=== PATIENT | male | born 1975 | race Caucasian/White ===

== ENCOUNTER 2017-01-31 17:52 | Inpatient (IN) | payer OTHER ==
[~2017-01-31] VITALS: Ht 182.9 cm; Wt 185.4 kg
[~2017-01-31 17:52] MED LIST: Vancomycin Dose per Pharmacist XX ONE
[2017-01-31 17:59] VITALS: BP 163/105; PULSE 120; RESP 20; O2SAT 96
--- NOTE | 2017-01-31 18:22 | ED.REPORT ---
HPI-Rash / Abscess Date of Service Jan 31, 2017 ED Provider: Dr. Castaneda Pt is a 41 y/o male w/ a hx of morbid obesity presenting to the ED c/o bilateral lower redness, swelling, and pain onset 2 weeks ago. The patient normally uses wraps over his lower extremities but lost them at a truck stop weeks ago. He was seen 2 years ago for lower extremity cellulitis in [place] and was told he had borderline diabetes. He takes no medications and has no history of cardiac disease. Pt denies fever, chills, nausea, vomiting. Nursing Notes Stated Complaint: POSSIBLE LEFT LEG CELLULITIS Chief Complaint: Skin Rash/Abscess Nursing Notes Reviewed: Yes Allergies: Coded Allergies: No Known Allergies (Unverified , 01/31/17) No Active Prescriptions or Reported Meds General Time Seen by MD: 18:22 Chief Complaint Rash Hx Obtained From: Patient Arrived By: Walk-in Onset Occurred: More than a week ago... (2 weeks) Symptom Duration: Since onset Location: : Lower extremity Quality: Painful Severity: Current: Mild Severity: Maximum: Mild Recent Healthcare: Previous diagnosis Similar Sx Previous: Yes Past Medical History Past Medical History Morbid obesity Hx lower extremity cellulitis Borderline diabetes Hernia Past Surgical History None reported Smoking History Unknown if Ever Smoker Ambulatory Status Independent Review of Systems Constitutional: Denies: Chills, Fever Respiratory: Denies: Non-productive cough, Shortness of breath Cardiovascular: Denies: Chest pain GI: Denies: Abdominal pain, Nausea, Vomiting Musculoskeletal: Reports: Extremity pain, Extremity swelling Skin: Reports Rash, Reports Swelling Complete sys rev & neg: except as marked. Physical Exam Initial Vital Signs Vital Signs (First) Date Time Temp Pulse Resp B/P Pulse Ox O2 Delivery O2 Flow Rate FiO2 01/31/17 17:59 37.4 120 20 163/105 96 Room Air Initial VS: Reviewed, Vital signs abnormal Head / Eyes: Atraumatic, Normocephalic, PERRL ENT: Mucous membranes moist, Conjunctiva normal, No scleral icterus Neck: Supple, Full range of motion Respiratory: Breath sounds normal, Clear to auscultation, No respiratory distress Extremities: Vascular intact, Neuro intact Neurologic: Alert, Oriented, Nonfocal Psychiatric: Mood/affect normal, Behavior normal, Normal thought content General/Constitutional: Awake, Alert, No acute distress, Cooperative, Not toxic appearing Appearance / Presentation: Positive: Obese, morbidly Significant malodor Skin: Atraumatic, Warm, Dry, Intact Cardiovascular: Regular rhythm, Heart sounds NL, No gallop, No murmurs, No rubs , Cap refill not delayed, Peripheral circulation NL Heart Rate / Rhythm: Positive: Tachycardia Lower Extremity / Pelvis / MS: Atraumatic, Full range of motion, Non-tender, No deformity, Neurologic intact, Vascular intact Bilateral lower extremity significant skin thickening, erythema, warmth Serous drainage from posterior left leg 2+ pitting edema Abdomen: Atraumatic, Soft, Non-tender, No guarding, No rebound, No distention, No palpable mass 6 cm non-reducible umbilical hernia Non-tender over hernia Ankle / Foot: No deformity, Neurologic intact, Vascular intact Very thickened calloused heals bilaterally Interpretation & Diagnostics Lab Results Interpretation Result Diagram: 02/02/17 0530 02/01/17 0815 Test 01/31/17 18:30 01/31/17 20:24 Hemoglobin A1c 8.0% (4.8-5.6) Magnesium Level 1.5mg/dL (1.6-2.6) Total Bilirubin 0.2mg/dL (0.0-1.2) Aspartate Amino Transf (AST/SGOT) 55U/L (0-50) Alanine Aminotransferase (ALT/SGPT) 71U/L (0-44) Alkaline Phosphatase 86U/L (25-150) Pro-B-Type Natriuretic Peptide 50.32pg/mL (0-86) Total Protein 7.2g/dL (6.4-8.4) Albumin 3.5g/dL (3.4-5.0) Urine Color Yellow (YELLOW) Urine Appearance Clear (CLEAR,HAZY) Urine pH 5.0 (5.0-8.0) Urine Specific [employer] 1.034 (1.003-1.035) Urine Protein 30mg/dL (NEG,TRACE) Urine Glucose (UA) 500mg/dL (NEGATIVE) Urine Ketones Negativemg/dL (NEGATIVE) Urine Occult Blood Negative (NEGATIVE) Urine Nitrite Negative (NEGATIVE) Urine Bilirubin Negative (NEGATIVE) Urine Urobilinogen Normalmg/dL (NORMAL) Urine Leukocyte Esterase Negative (NEGATIVE) Urine RBC 0-2/hpf (0-2) Urine WBC 0-5/hpf (0-5) Urine Epithelial Cells Few/hpf (NONE-MOD) Urine Crystals None seen (NONE SEEN) Urine Bacteria None/hpf (NONE-FEW) Urine Hyaline Casts None/lpf (NONE) Urine Granular Casts None seen (NONE SEEN) Urine Waxy Casts None seen (NONE SEEN) Urine Red Blood Cell Casts None seen (NONE SEEN) Urine White Blood Cell Casts None seen (NONE SEEN) Urine Mucus None seen (None Seen) Urine Trichomonas None seen (NONE SEEN) Urine Yeast None (NONE SEEN) Urinalysis Comment None Urine Culture Reflexed Not indicated ECG Interpretation ECG Interpretation: Sinus tachycardia rate 109 No previous available Time: 20:09 Interpreted by: ED physician Normal ECG Interpretation: No acute ischemic changes X-Ray Chest Interpretation Chest Xray Interpretation: IMPRESSION: 1. Questionable right basilar pulmonary nodule. Short interval followup recommended. 2. No acute cardiopulmonary findings. Dictated by: Kelly Yousif M.D. on 01/31/2017 at 19:24 Approved by: Kelly Yousif M.D. on 01/31/2017 at 19:25 View: Portable, 1 view Interpretation / Wet Read by: Interpret - Radiologist Re-Eval/Medical Decision Med Decision/Clinical Course 41-year-old morbidly obese male presents with bilateral lower extremity redness , tenderness, and warmth consistent with cellulitis. He has a history of chronic lower extremity edema and usually wears compression devices to help minimize this. He is currently homeless and is in the process of potentially moving to [place] in one or 2 weeks. His vitals are remarkable for tachycardia that persisted despite 2 L of fluid. There is no evidence of congestive heart failure on chest x-ray or with BNP. His sugars are elevated at 250 which is consistent with a diagnosis of type II diabetes. Patient was aware one year ago that he was a prediabetic, however he has not been given the diagnosis of diabetes to this point. I suspect she may also have sleep apnea which is contributing to his lower extremity edema. Given his cellulitis, tachycardia, and lactic acidosis as well as a new diagnosis of type II diabetes he will be admitted for infection treatment. He received vancomycin and Zosyn in the ER for his infection after cultures were obtained. He likely has a polymicrobial infection given his diabetes. Patient may also benefit from podiatry consultation/foot cares during hospitalization. Re-Evaluation/Progress #1: Time of Eval: 21:43 Re-Evaluation/Progress Note: Pt rechecked. Discussed labs and imaging. Remains tachy at 108 bpm. Informed pt of need for repeat lab lactic acid. Re-Evaluation/Progress #2: Time of Eval: 22:55 Re-Evaluation/Progress Note: Pt rechecked. Remains tachy. Discussed discharge vs admit. He is camping at the moment and since he is new to the area will have no access to follow-up. He also does not have a PCP. The patient agrees to admission. Consultation : Referral / Consult Name: Brooklyn De La Cruz DO Consulted With: Hospitalist Call Returned at: 23:13 Touch Up Edger: Will see patient, Agrees with eval, Agrees with plan, Accepts admit Counseled Regarding: Diagnosis, Lab results, Need for admission Discharge & Departure Impression: Primary Impression: Cellulitis of both lower extremities Additional Impressions: Lactic acidosis Hyperglycemia Disposition: ADMITTED TO HOSPITAL Discharge Condition All VS Reviewed: Yes Condition: Stable Scribe Attestation Portions of this note were transcribed by Mark Johnson. I, Dr. Castaneda personally performed the history, physical exam and medical decision-making; I reviewed and confirmed the accuracy of the information in the transcribed note. Signed by Logan Wiggins, 01/31/17 - 1845 Keo Castaneda DO Jan 31, 2017 18:22 MARK JOHNSON Jan 31, 2017 18:34 None seen (NONE SEEN) Urine Bacteria None/hpf (NONE-FEW) Urine Hyaline Casts None/lpf (NONE) Urine Granular Casts None seen (NONE SEEN) Urine Waxy Casts None seen (NONE SEEN) Urine Red Blood Cell Casts None seen (NONE SEEN) Urine White Blood Cell Casts None seen (NONE SEEN) Urine Mucus None seen (None Seen) Urine Trichomonas None seen (NONE SEEN) Urine Yeast None (NONE SEEN) Urinalysis Comment None Urine Culture Reflexed Not indicated Lactic Acid Level 2.8mmol/L (0.4-2.0) ECG Interpretation ECG Interpretation: Sinus tachycardia rate 109 No previous available Time: 20:09 Interpreted by: ED physician Normal ECG Interpretation: No acute ischemic changes X-Ray Chest Interpretation Chest Xray Interpretation: IMPRESSION: 1. Questionable right basilar pulmonary nodule. Short interval followup recommended. 2. No acute cardiopulmonary findings. Dictated by: Kelly Yousif M.D. on 01/31/2017 at 19:24 Approved by: Kelly Yousif M.D. on 01/31/2017 at 19:25 View: Portable, 1 view Interpretation / Wet Read by: Interpret - Radiologist Re-Eval/Medical Decision Med Decision/Clinical Course 41-year-old morbidly obese male presents with bilateral lower extremity redness , tenderness, and warmth consistent with cellulitis. He has a history of chronic lower extremity edema and usually wears compression devices to help minimize this. He is currently homeless and is in the process of potentially moving to [place] in one or 2 weeks. His vitals are remarkable for tachycardia that persisted despite 2 L of fluid. There is no evidence of congestive heart failure on chest x-ray or with BNP. His sugars are elevated at 250 which is consistent with a diagnosis of type II diabetes. Patient was aware one year ago that he was a prediabetic, however he has not been given the diagnosis of diabetes to this point. I suspect she may also have sleep apnea which is contributing to his lower extremity edema. Given his cellulitis, tachycardia, and lactic acidosis as well as a new diagnosis of type II diabetes he will be admitted for infection treatment. He received vancomycin and Zosyn in the ER for his infection after cultures were obtained. He likely has a polymicrobial infection given his diabetes. Patient may also benefit from some podiatry consultation/foot cares during hospitalization. Re-Evaluation/Progress #1: Time of Eval: 21:43 Re-Evaluation/Progress Note: Pt rechecked. Discussed labs and imaging. Remains tachy at 108 bpm. Informed pt of need for repeat lab lactic acid. Re-Evaluation/Progress #2: Time of Eval: 22:55 Re-Evaluation/Progress Note: Pt rechecked. Remains tachy. Discussed discharge vs admit. He is camping at the moment and since he is new to the area will have no access to follow-up. He also does not have a PCP. The patient agrees to admission. Consultation : Referral / Consult Name: Brooklyn De La Cruz DO Consulted With: Hospitalist Call Returned at: 23:13 Touch Up Edger: Will see patient, Agrees with eval, Agrees with plan, Accepts admit Counseled Regarding: Diagnosis, Lab results, Need for admission Discharge & Departure Impression: Primary Impression: Cellulitis of both lower extremities Additional Impressions: Lactic acidosis Hyperglycemia Disposition: ADMITTED TO HOSPITAL Discharge Condition All VS Reviewed: Yes Condition: Stable Scribe Attestation Portions of this note were transcribed by Mark Johnson. I, Dr. Castaneda personally performed the history, physical exam and medical decision-making; I reviewed and confirmed the accuracy of the information in the transcribed note. Signed by Logan Wiggins, 01/31/17 - 5 Keo Castaneda DO Jan 31, 2017 18:22 MARK JOHNSON Jan 31, 2017 18:34
[2017-01-31] MEDS ORDERED: 0.9% Sodium Chloride 1,000 ML IV ONE (18:28)
[2017-01-31] MEDS ORDERED: Piperacillin-Tazo 3.375 Gm Inj 3.375 GM in Dextrose 5% Minibag Plus 50 ML IV ONE (18:30)
[2017-01-31 18:47] VITALS: BP 131/59; PULSE 111
[2017-01-31 18:53] LABS: BASOPHILS % (AUTO) 0.3 % (0-3); EOSINOPHILS % (AUTO) 1.1 % (0-5); MONOCYTES % (AUTO) 8.5 % (4-12); Mean Corpuscular Hemoglobin 27.5 pg (27.0-35.0); Mean Corpuscular Volume 84.1 fL (81-100); NEUTROPHILS % (AUTO) 67.1 % (40-74); Platelet Count 246 bil/L (150-400)
[2017-01-31 19:11] LABS: Magnesium 1.5 mg/dL (1.6-2.6)
--- NOTE | 2017-01-31 19:27 | DRSVH ---
PROCEDURE: X-RAY CHEST, TWO VIEWS ([id number]) INDICATIONS: leg swelling TECHNIQUE: 2 views of the chest were acquired. COMPARISON: None. FINDINGS: Surgical changes and devices: None. Lungs and pleura: A questionable pulmonary nodule is projected over the lateral right lung base. This is only visualized on one of 2 views and may represent overlapping vascular shadows. No acute pulmon emmy radiopacities. No pleural effusion or pneumothorax. Mediastinum: Mediastinal contours are normal. Heart size is normal. Bones and chest wall: No suspicious bony abnormalities. Soft tissues appear unremarkable. IMPRESSION: 1. Questionable right basilar pulmonary nodule. Short interval followup recommended. 2. No acute cardiopulmonary findings. Dictated by: Kelly Yousif M.D. on 01/31/2017 at 19:24 Approved by: Kelly Yousif M.D. on 01/31/2017 at 19:25
[2017-01-31 20:20] VITALS: BP 115/75; PULSE 112; RESP 19; O2SAT 98
[2017-01-31 21:00] LABS: COLOR,URINE YELLOW (YELLOW)
[2017-01-31 21:01] LABS: APPEARANCE,URINE CLEAR (CLEAR,HAZY); OCCULT BLOOD,URINE NEGATIVE (NEGATIVE); UROBILINOGEN,URINE NORMAL (NORMAL)
[2017-01-31 21:57] VITALS: BP 140/75; PULSE 103; RESP 20; O2SAT 97
[2017-01-31] MEDS ORDERED: Vancomycin Inj 2,250 MG in 0.9% Sodium Chloride 500 ML IV ONE (23:20)
[2017-01-31 23:29] VITALS: BP 149/76; PULSE 102; RESP 17; O2SAT 93
[2017-01-31] MEDS ORDERED: Ondansetron 2 mg/mL 2 mL Inj IVPUSH PRN (23:35)
[2017-01-31] MEDS ORDERED: Alum-Mag Hydrox-Simeth 30 mL Suspension PO PRN (23:35)
[2017-02-01] VITALS (8 sets, daily range): BP systolic 127–167; BP diastolic 79–106; PULSE 89–104; RESP 18–22; O2SAT 97–100
--- NOTE | 2017-02-01 00:10 | PCM.HPMED ---
Subjective Date of Service Jan 31, 2017 Primary Provider: Admitting Physician: Brooklyn De La Cruz DO Primary Care Physician: Gilberto Attending Physician: Brooklyn De La Cruz DO Admit Status: From the Emergency Department, Full Admit Chief Complaint: Cellulitis, Hyperglycemia History of Present Illness: Patient is a 41 y/o Male new to this hospital with no known past medical history. Patient presented to ED with bilateral lower extremities erythema and swelling that has been chronic to him for the past two years, but has worsened over the last 2-3 weeks. He was previously treated at another facility for cellulitis and received IV Abx and d/c on home on an abx and "diabetic pill", but does not remember the name. He reports he normally wraps his legs in compression wraps, but lost them at a truck stop three weeks ago which has caused his leg swelling and erythema to worsen. Pt reports a lancing pain in the back of his left calf that comes on sporadically without cause and that immediately goes away. Nothing aggravates or alleviates this pain. Patient denies fever, chills, nausea, vomiting, and diarrhea. 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 Patient usually lives out of his truck, but has been staying at motels when he can. Patient does not have a PCP, and has not been worked up for any health maintenance in the past. In the ED, patient was given Zosyn 3.375mg IV, Vancomycin 2,250mg IV, and NS fluids. CXR performed showing no acute cardiopulonary findings. Patient admitted to medical service for cellulitis of lower extremities and hyperglycemia. Review of Systems: Complete review of systems obtained. Review of systems negative except otherwise noted above. Allergies Coded Allergies: No Known Allergies (Unverified , 01/31/17) Home Medications Patient denies being on any home medications. PMH Umbilical Hernia - 3 years Surgical History Denies any significant surgical history. Family History Father - CAD Mother - CVA Social History Hx Alcohol Use: No Hx Substance Use: No Hx Tobacco Use: No Smoking Status: Never Smoker Living Arrangement: Homeless Exam Vital Signs Vital Sign - Last Date Time Temp Pulse Resp B/P Pulse Ox O2 Delivery O2 Flow Rate FiO2 01/31/17 23:29 37.1 102 17 149/76 93 Room Air Exam Patient is a 41 y/o Male that is morbidly obese, with poor hygiene in no acute distress. Pt is pleasant, cooperative, and conversive. HEENT: EOMI, dry mucous membranes, poor dentition NECK: Supple, No lymphadenopathy HEART: Tachycardic, No murmurs LUNGS: Clear to auscultation bilaterally, no wheeze, rales, or rhonchi ABDOMEN: Protuberant, normal active bowel sounds, nontender, umbilical hernia. MUSCULOSKELETAL: Moves all four extremities, tenderness to the posterior calf on the LLE. Negative Homans sign. SKIN: bilateral lower extremity swelling and erythema extending to the upper 2/ 3 of the calf. Chronic excoriated skin changes on bilateral lower extremities. Hyperkeratosis to bilateral heels. NEURO: No focal deficits PSYCH: Patient is conversive and cooperative. Normal affect and mood. Patient' s hygiene is extremely poor, however he realizes states that he needs to take better care of himself. Lab and Diagnostics Labs UA Glucose 500 Proteins negative Blood negative Bacteria negative ESR 46 CRP 2.8 Result Diagram: 01/31/17 1830 01/31/17 1830 X-Rays, CTs and MRIs CXR IMPRESSION: 1. Questionable right basilar pulmonary nodule. Short interval followup recommended. 2. No acute cardiopulmonary findings. Dictated by: Kelly Yousif M.D. on 01/31/2017 at 19:24 Approved by: Kelly Yousif M.D. on 01/31/2017 at 19:25 12-lead ECG EKG @17:52 Sinus tachycardia Assessment & Plan Patient is a 41 y/o Male new to this hospital with no known past medical history. Patient presented to ED with bilateral lower extremities erythema and swelling that has been chronic to him for the past two years, but has worsened over the last 2-3 weeks.Patient admitted to medical service for cellulitis of lower extremities and hyperglycemia. Hospital Day 1 1. Bilateral lower extremity erythema and edema - chronicity unknown, present on admission likely cellulitis, also consider DVT - Zosyn 3.375mg IV dose given in ED - Vancomycin 2,250mg IV dose given in ED - pharmacy to dose continued regiment - Ceftriaxone 2g IV Q24 - NS fluids started in ED - WBC within normal range, repeat labs if patient begins exhibiting evidence of sepsis - Blood Cultures pending - Obtain MRSA swab in AM - Obtain ASO titer in AM - AM US of LLE 2. Hyperglycemia - chronicity unknown, present on admission - Blood glucose 245 on admission with 500 glucose on UA - HgbA1c ordered - start patient on sliding scale insulin - diabetic diet 3. Lactic Acid 4.1 on admission, but fell to 2.1. Continue trending with AM lactic acid 4. Tachycardia likely secondary to anxiety 5 .Elevated blood pressure - chronicity unknown, present on admission - Will continue to monitor overnight. Encourage day team to initiate scheduled antihypertensive for patient to continue after dispo. PRN antiemetic, PPI, and pain Heparin 5,000 units for anticoagulation Diabetic diet Patient is FULL CODE Patient is admitted to the medical team and will likely be admitted <2 midnights due to severity of disease and risk of adverse events. Pain Evaluation: Adequate Pain Control GI Prophylaxis: Proton Pump Inhibitor VTE Prophylaxis: Sub-Q Heparin (Unfractionated) Resuscitation Status: CPR: Attempt Resuscitation Attending Statement The patient was seen and examined together with house staff on 01/31/17 and I agree with the history, exam and plan as outlined in the note above. Venkatesh Tristan DO Feb 01, 2017 00:10 Brooklyn De La Cruz DO Feb 01, 2017 04:21
[2017-02-01] MEDS ORDERED: Ondansetron 2 mg/mL 2 mL Inj IVPUSH PRN (00:55)
[2017-02-01] MEDS ORDERED: Alum-Mag Hydrox-Simeth 30 mL Suspension PO PRN (00:55)
[2017-02-01] MEDS ORDERED: Polyethylene Glycol (PEG) 17 Gm Powder PO PRN (00:55)
[2017-02-01] MEDS: Heparin 5,000 Unit/mL Inj SUBQ SCH ×3 (01:41→16:39)
[2017-02-01] MEDS ORDERED: 0.9% Sodium Chloride 100 ML ONE (03:42)
[2017-02-01] MEDS: cefTRIAXone Inj 2,000 MG in Dextrose 5% Minibag Plus 50 ML IV SCH (03:46)
[2017-02-01] MEDS: Insulin Human REGular 300 Unit/3 mL Inj SUBQ SCH ×4 (03:46→20:30)
[2017-02-01] MEDS: Vancomycin Inj 1,000 MG in IV Premix 1 EACH IV SCH ×3 (05:35→18:28)
--- NOTE | 2017-02-01 05:43 | NUR ---
Admit admitted pt from ED to [facility] [place]. Noted pt's lower extremety redness and swelling accompanied with heat and pain. ABx Vancomycin running. Blood sugar checks and diabetic education provided. Denies chest pain, sob, n/v or abd discomfort. Pt has been afebrile overnight.
[2017-02-01] MEDS ORDERED: Labetalol 5 mg/mL 20 mL Inj IVPUSH ONE (05:45)
--- NOTE | 2017-02-01 06:54 | PCM.CONPHA ---
Subjective Date of Service: Feb 01, 2017 Requesting Provider: Alexis Wei MD worsening cellulitis History of Present Illness chronic cellulitis which going on for 2-3 yrs and intermittently treated with antibiotics (unknown names) Reason for Pharmacy Consult: Vancomycin Dosing Objective Assessment/Plan Assessment/Plan a/ - 41 y/o male admitted in for worsening cellulitis of his leg which is going on for 2-3 yrs with intermittent treatment with antibiotics (unknown the names). Vancomycin initiated to empirical coverage - Afebrile, WBC is unremarkable @10.1, Blood cultures, nasal MRSA screen pending - In ED, he received loading dose Vancomycin 2.25G, along with Rocephin which to be continued - Wt: 185.4kg, ht: 185cm, BMI: 55.4 kg/m2, SCr: 0.81 mg/dL, estimated clearance (ABW globalRPh) ~ 135mg/min, t1/2 ~ 6 hrs, Vd~93 L P/ - Give Vancomycin 1000 g iv q6h. Trough level ordered before 5th dose @ 2230 today Pharmacy will continue to monitor and make necessary adjustment Thank you for consulting clinical pharmacy in the care of this patient Mimi Varela Feb 01, 2017 06:54
[2017-02-01] MEDS: Vancomycin Dose per Pharmacist XX SCH (07:59)
[2017-02-01 08:35] LABS: BASOPHILS % (AUTO) 0.2 % (0-3); EOSINOPHILS % (AUTO) 1.2 % (0-5); MONOCYTES % (AUTO) 9.3 % (4-12); Mean Corpuscular Hemoglobin 27.6 pg (27.0-35.0); Mean Corpuscular Volume 84.1 fL (81-100); NEUTROPHILS % (AUTO) 68.7 % (40-74); Platelet Count 217 bil/L (150-400)
--- NOTE | 2017-02-01 12:34 | PCM.PNMED ---
Subjective Date of Service Feb 01, 2017 Subjective Patient seen and examined today. He said he feels fine. Vitals stable. Exam Vital Signs Vital Sign - Last Date Time Temp Pulse Resp B/P Pulse Ox O2 Delivery O2 Flow Rate FiO2 02/01/17 09:35 36.8 92 18 151/97 97 Room Air 02/01/17 04:58 1.00 Intake and Output 01/31/17 01/31/17 02/01/17 Cumulative From/Thru 15:00 23:00 07:00 01/31/17 17:59 - 02/01/17 06:52 Intake Total 2000 ml 115 ml 2115 ml Output Total 500 ml 500 ml Balance 2000 ml -385 ml 1615 ml Intake Oral 0 ml 0 ml IV Total 2000 ml 115 ml 2115 ml Output Urine Total 500 ml 500 ml # Bowel Movements 0 0 Exam HEENT: EOMI, dry mucous membranes, poor dentition NECK: Supple, No lymphadenopathy HEART: Tachycardic, No murmurs LUNGS: Clear to auscultation bilaterally, no wheeze, rales, or rhonchi ABDOMEN: Protuberant, normal active bowel sounds, nontender, umbilical hernia. MUSCULOSKELETAL: Moves all four extremities, tenderness to the posterior calf on the LLE. [place] LE edema SKIN: bilateral lower extremity swelling and erythema extending to the upper 2/ 3 of the calf. Chronic excoriated skin changes on bilateral lower extremities. Hyperkeratosis to bilateral heels. NEURO: No focal deficits PSYCH: Patient is conversive and cooperative. Normal affect and mood. Patient' s hygiene is extremely poor, however he realizes states that he needs to take better care of himself. Lab and Diagnostics Result Diagram: 02/01/1781402/01/1715 Assessment & Plan Patient is a 41 y/o Male new to this hospital with no known past medical history. Patient presented to ED with bilateral lower extremities erythema and swelling that has been chronic to him for the past two years, but has worsened over the last 2-3 weeks.Patient admitted to medical service for cellulitis of lower extremities and hyperglycemia. Hospital Day 2 1. Bilateral lower extremity erythema and edema - chronicity unknown, likely chronic venous stasis, present on admission likely cellulitis, also consider DVT - Zosyn 3.375mg IV dose given in ED - Vancomycin 2,250mg IV dose given in ED - pharmacy to dose continued regiment - Ceftriaxone 2g IV Q24 - NS fluids started in ED - WBC within normal range - Blood Cultures pending - AM US of LLE, Echo pending - Wound care consult 2. Hyperglycemia - chronicity unknown, present on admission - Blood glucose 245 on admission with 500 glucose on UA - HgbA1c ordered - started patient on sliding scale insulin, may need to add long acting - diabetic diet 3. Lactic Acid 4.1 on admission, but fell to 2.1, remained at 2.1 this am. 4. Tachycardia, resolved. likely secondary to anxiety 5 .Elevated blood pressure - chronicity unknown, present on admission - stated on lisinopril 20mg QD, will monitor PRN antiemetic, PPI, and pain Heparin 5,000 units for anticoagulation Diabetic diet Patient is FULL CODE Dispo: pending clinical improvement. Patient is homeless. PT eval. GI Prophylaxis: Proton Pump Inhibitor VTE Prophylaxis: Sub-Q Heparin (Unfractionated) Resuscitation Status: CPR: Attempt Resuscitation Time spent 45 mins Amadeo Fall MD Feb 01, 2017 12:34
[2017-02-01] MEDS ORDERED: 0.9% Sodium Chloride 250 ML ONE (15:14)
--- NOTE | 2017-02-01 18:04 | NUR ---
Cellulitis Bilateral LE redness present, weeping reduced over shift, minimally reduced from marked margins, and reports overal slight improvement. Elevating LEs consistantly but strongly encouraging good hygiene practices.
--- NOTE | 2017-02-01 20:56 | DRSVH ---
PROCEDURE: US VENOUS LEG DUPLEX BILATERAL INDICATIONS: Cellulitis with possible DVT. TECHNIQUE: Real-time imaging, as well as color and pulse Doppler interrogation, were performed of the deep veins of both legs from the inguinal ligament to the popliteal fossa. COMPARISON: None. FINDINGS: The deep veins are normally compressible, and free of intraluminal thrombus. Color and pu lse Doppler demonstrate normal phasic intravascular flow. There is normal augmentation response to d istal compression maneuver. IMPRESSION: 1. No evidence of deep venous thrombosis in the right or left lower extremity. Dictated by: Gabe Khanna M.D. on 02/01/2017 at 20:54 Approved by: Gabe Khanna M.D. on 02/01/2017 at 20:54
[2017-02-01] MEDS ORDERED: Vancomycin Serum Trough XX ONE (22:30)
[2017-02-02] MEDS: Vancomycin Inj 1,000 MG in IV Premix 1 EACH IV SCH ×2 (01:17→07:36)
[2017-02-02] MEDS: Heparin 5,000 Unit/mL Inj SUBQ SCH ×3 (02:21→17:22)
[2017-02-02] MEDS: Insulin Human REGular 300 Unit/3 mL Inj SUBQ SCH ×5 (02:30→21:35)
[2017-02-02] MEDS: cefTRIAXone Inj 2,000 MG in Dextrose 5% Minibag Plus 50 ML IV SCH (02:41)
[2017-02-02 04:11] VITALS: BP 143/84; PULSE 100; RESP 20; O2SAT 99
--- NOTE | 2017-02-02 06:17 | NUR ---
Cellulitis: Bilateral LE cellulitis with redness and minimal weeping. Legs elevated on pillows, pt denies pain. No c/o chest pain or SOB. Pt slept most of the night, pleasant and cooperative with care.
[2017-02-02 06:21] LABS: Mean Corpuscular Hemoglobin 27.2 pg (27.0-35.0); Mean Corpuscular Volume 82.1 fL (81-100)
[2017-02-02] MEDS: Vancomycin Dose per Pharmacist XX SCH (08:30)
[2017-02-02 08:38] VITALS: BP 130/81; PULSE 91; RESP 20; O2SAT 99
--- NOTE | 2017-02-02 10:22 | NUR ---
Social Work-initial assessment/readiness for discharge: Data:See initial assessment. Pt is a 41 y/o male who was admitted on 01/31/17 for cellulitis per H&P. Pt's insurance is [employer] and PCP is not listed. EMR Reviewed. Pt's readmission score is 4-high risk. SLOO met with pt at bedside, SW role explained. Pt is alert and oriented x3. Pt resides in an [facility] for the last 7-8 years. Pt is independent at baseline and does drive. Pt has no HH or SNF history. Pt has no bed bug exterminator insurance or VA benefits. SW discussed DPOA/advanced directive paperwork, pt has not completed this, SW discussed this and pt is declining any information. SW provided pt with discharge planning checklist, SW encouraged pt to call with any questions. SW discussed lack of PCP, pt informed SW that he is planning on moving to [place] and does not want a local PCP. Pt plans on returning back to [facility] when medically stable. SW provided phone number and plan on white board in room. SW will continue to follow. Assessment:Pt who is independent at baseline. Plan:Pt to discharge back to his [facility] when medically stable. SW will continue to follow. NATALIE Jack Addendum: 02/02/17 at 1031 by FUAD STUART Amended: Links added.
--- NOTE | 2017-02-02 10:49 | NUR ---
Social Work-multidisciplinary rounds: Antoni morning MD anjelica states pt may be ready to discharge later today or tomorrow. PT evaluation is pending. Pt will likely need PO abx at discharge. SW Will continue to follow. NATALIE Jack
--- NOTE | 2017-02-02 11:28 | NUR ---
Evaluation completed. Please go to "Notes" then click on "Assessments and Notes" (bottom left corner of screen). Then select appropriate discipline tab on top of screen.
[2017-02-02 12:37] VITALS: BP 163/66; PULSE 97; RESP 18; O2SAT 99
[2017-02-02 13:01] VITALS: BP 156/64
--- NOTE | 2017-02-02 13:08 | DRSVH ---
[facility] [address] [place] [address] Echocardiogram Report Name: HELIO CHUNG LStudy Date : 02/02/2017 Height: 72 in Hospital Exam Location: [facility] Weight: 409 lb Gender: Male BSA: 2.9 m2 : 1975 Age: 41 yrs BP: 143/84 m mHg Reason For Study: Edema Ordering Physician: Yefri Zaragoza Performed By: Yovanny Matthew Referring Physician: ANNA ERICKSON Interpretation Summary Left ventricular ejection fraction is estimated to be 55 +/- 5%. Mid to basal inferior hypokinesis There is no significant valvular heart disease. Procedure: A two-dimensional transthoracic echocardiogram with color flow and Doppler was performed. The study quality was technically adequate. The apical views were difficult to obtain and are suboptimal in quality. There is no prior echocardiogram noted for this patient. The patient was in normal sinus rhythm during the exam. Left Ventricle: The left ventricle is normal in size. Left ventricular ejection fraction is estimated to be 55 +/- 5%. Mid to basal inferior hypokinesis. Right Ventricle: The right ventricle grossly appears normal in size with probable normal systolic function. Atria: The left atrium grossly appears normal in size. Right atrial size is normal. The interatrial septum is intact with no evidence for an atrial septal defect. Mitral Valve: The mitral valve is normal. There is no mitral regurgitation noted. Aortic Valve: The aortic valve is normal in structure and function. No aortic regurgitation is present. Tricuspid Valve: The tricuspid valve is not well visualized, but is grossly normal. Pulmonary artery pressures cannot be estimated because of the lack of a measurable TR jet velocity. Pulmonic Valve: The pulmonic valve is not well visualized. Great Vessels: The aortic root is normal size. The ascending aorta is mildly enlarged. The pulmonary artery is normal size. The IVC is dilated (diameter is greater than 2.1 cm) and it collapses less than 50% with a sniff. This suggests a high right atrial pressure of 15 mm Hg. Pericardium/ Pleura There is no pericardial effusion. There is no pleural effusion. MMode/2D Measurements & Calculations LVIDd: 5.3 cm RA long axis LVOT diam: 2.4 cm LVIDs: 3.2 cm LA A2 area: 11.6 cm Ao root diam FS: 39.1 % LA A4 area: 20.3 cm RA area EPSS: 0.54 cm LA length (vol) asc Aorta Diam IVSd: 1.3 cm : 16.7 cm LA vol: 33.5 ml RA vol Ao Arch Diam (Prox LA vol index : 55.3 ml Trans): 3.6 cm RA : 19.1 mm2 IVC diam: 2.8 cm LV prajapati. diameter/BSA LV sys. diameter/BSA RVD1 (basal) TAPSE: 2.4 cm (cm/m^2): 1.8 (cm/m^2): 1.1 Doppler Measurements & Calculations Ao V2 max: 175.9 cm/sec MV E max steve MV E/A: 0.90 PA V2 max Ao max P.4 mmHg : 83.0 cm/sec : 85.0 cm/sec Ao mean P.8 mmHg MV A max steve PA mean PG LVOT Max Steve : 92.8 cm/sec : 1.7 mmHg : 117.9 cm/sec MARSHA(I,D): 3.3 cm sev ratio: 0.75 MV dec time: 0.19 sec Ao V2 mean LV V1 max PG PA V2 mean : 112.2 cm/sec : 63.3 cm/sec Ao V2 VTI: 28.2 cm LV V1 VTI PA pr(Accel) MARSHA(V,D): 3.0 cm2 : 21.1 cm : 43.2 mmHg MARSHA indexed to BSA (cm^2/m^2): 1.2 Electronically signed by: Miguelito Singleton on Reading Physician:02/02/2017 01:07 PM
[2017-02-02] MEDS ORDERED: Vancomycin Inj 1,000 MG in IV Premix 1 EACH IV SCH (13:30)
[2017-02-02] MEDS: Nystatin 100,000 Unit/Gm 15 Gm Powder TOPICAL SCH ×2 (15:38→21:29)
[2017-02-02] MEDS: TerBINafine 1% 15 Gm Cream TOPICAL SCH ×2 (15:38→21:29)
--- NOTE | 2017-02-02 15:58 | NUR ---
Foot care Bilateral LE cellulitis with outlined redness, heat and minimal weeping. Legs elevated on pillows, denies pain. Atrac-tane lotion applied to feet to soften extreme dry callused areas, heels in particular, followed by anti-fungal. Pt feet are exquisitely ticklish, however pt able to tolerate application of lotion. Call light in place, will continue to monitor.
[2017-02-02 16:39] VITALS: BP 138/83; PULSE 92; RESP 18; O2SAT 98
--- NOTE | 2017-02-02 17:54 | NUR ---
Wound Care 41 yo diabetic male with cellulitis at bilateral lower extremities. Foot care has obviously been neglected as has been compression therapy. Patient presents with superficial areas of skin abrasion at his left posterior calf. I am reluctant to compress this patient until podiatry has assessed patients feet. Will recheck on this patient tomorrow, for now leg elevation and antibiotic regiment should suffice.
--- NOTE | 2017-02-02 18:17 | PCM.PNMED ---
Subjective Date of Service Feb 02, 2017 Subjective Patient is laying in bed sleeping, was seen walking with physical therapy earlier in the day. He says that his erythema is improving as well as swelling. This prior episode of cellulitis was 2 years ago and he was seen [facility] he was given IV antibiotics followed by by mouth. This is his second round of cellulitis. He has no other complaints Exam Vital Signs Vital Sign - Last Date Time Temp Pulse Resp B/P Pulse Ox O2 Delivery O2 Flow Rate FiO2 02/02/17 04:11 36.8 100 20 143/84 99 Room Air 02/01/17 04:58 1.00 Intake and Output 02/01/17 02/01/17 02/02/17 Cumulative From/Thru 15:00 23:00 07:00 01/31/17 17:59 - 02/02/17 02:15 Intake Total 1540 ml 3655 ml Output Total 1625 ml 2125 ml Balance -85 ml 1530 ml Intake Oral 1100 ml 1100 ml IV Total 440 ml 2555 ml Output Urine Total 1625 ml 2125 ml # Bowel Movements 2 2 Exam Gen.: No acute distress, morbidly obese HEENT: Normocephalic, atraumatic Heart: Regular rate and rhythm no S3-S4 murmurs Lungs: Clear to auscultation no crackles or wheezes Abdomen: Very large obese abdomen normal bowel sounds, protruding umbilical hernia Extremities: Swollen large erythematous lower extremities, erythema seems to be improving as it is well under the demarcated line Neurological: 1+ patellar reflex Skin: Weeping, draining ulcers on the right lower extremity, diffuse nail fungus , onychomycosis Neuro: No focal deficits IVs and Medications IV Fluids None Medications Reviewed: Medications were reviewed in detail Lab and Diagnostics Result Diagram: 02/01/1781402/01/17814 Assessment & Plan Patient is a 41 y/o Male new to this hospital with no known past medical history. Patient presented to ED with bilateral lower extremities erythema and swelling that has been chronic to him for the past two years, but has worsened over the last 2-3 weeks.Patient admitted to medical service for cellulitis of lower extremities and hyperglycemia. 1. Cellulitis, POA - chronicity unknown, likely chronic venous stasis, present on admission likely cellulitis, also consider DVT - Zosyn 3.375mg IV dose given in ED - Vancomycin is discontinued on 02/02 - Continue Ceftriaxone 2g IV Q24 - WBC within normal range - Blood Cultures NGTD - AM US of LLE: Negative for DVT - Wound care consult 2. Diabetes mellitus with Hyperglycemia - chronicity unknown, present on admission - Blood glucose 245 on admission with 500 glucose on UA - HgbA1c ordered 8.0 - started patient on sliding scale insulin - diabetic diet - Diabetes education was ordered --Started patient on metformin 500 mg by mouth twice a day, may titrate it up in 1 week --Patient will likely need a second agent to control his Diabetes 3 .Elevated blood pressure - chronicity unknown, present on admission - stated on lisinopril 20mg QD, will monitor - Added chlorthalidone 12.5 mg as blood pressures are not controlled 4. Tinea pedis active -- Terbinafine cream 5. Lactic Acid 4.1 on admission: Resolved, likely due to infection and dehydration 6. Tachycardia, resolved. likely secondary to anxiety PRN antiemetic, PPI, and pain Heparin 5,000 units for anticoagulation Diabetic diet Patient is FULL CODE Dispo: pending clinical improvement. Patient is homeless. PT eval. Pain Evaluation: Adequate Pain Control GI Prophylaxis: Proton Pump Inhibitor VTE Prophylaxis: Sub-Q Heparin (Unfractionated) Resuscitation Status: CPR: Attempt Resuscitation Time spent 25 minutes Patria Newby DO Feb 02, 2017 05:14
[2017-02-02 20:29] VITALS: BP 153/99; PULSE 99; RESP 19; O2SAT 97
[2017-02-03] MEDS: Heparin 5,000 Unit/mL Inj SUBQ SCH ×2 (00:30→10:37)
[2017-02-03] MEDS: cefTRIAXone Inj 2,000 MG in Dextrose 5% Minibag Plus 50 ML IV SCH (02:32)
[2017-02-03 05:34] VITALS: BP 154/90; PULSE 86; RESP 19; O2SAT 96
--- NOTE | 2017-02-03 07:16 | NUR ---
Cellulites Cellulites at bilateral LEs: Generalizes dark redness, edema, warm to touch, denies pain. 2 small open areas at left calf. No dressing. LEs elevated on pillows. VSS, afebrile.
[2017-02-03] MEDS: Insulin Human REGular 300 Unit/3 mL Inj SUBQ SCH ×2 (07:30→11:30)
[2017-02-03] MEDS ORDERED: LISI-567 PO (08:06)
[2017-02-03] MEDS ORDERED: HYG25 PO (08:06)
[2017-02-03] MEDS ORDERED: METF500T PO (08:06)
[2017-02-03] MEDS ORDERED: NYST1POW25 TOPICAL (08:06)
[2017-02-03] MEDS ORDERED: Terbinafine Hcl TOPICAL (08:06)
[2017-02-03] MEDS ORDERED: CLIN-77 PO ×2 (08:14→09:18)
[2017-02-03] MEDS ORDERED: LACT1CAP26 PO (08:15)
[2017-02-03] MEDS ORDERED: LEVO750T9 PO (09:18)
--- NOTE | 2017-02-03 10:07 | PCM.DIMED ---
Discharge Instructions Date of Service Feb 03, 2017 Dates of Hospitalization Jan 31, 2017 at 23:42 Discharge Diagnosis Discharge Diagnosis Cellulitis of b/l lower extremities, Venous stasis ulcers, Hypertension, DM II, Morbid Obesity Medication Instructions Additional med instructions Please note you have new medications for DM II, HTN, Cellulitis We recommend that you wear compression stockings Diet Discharge Diet: Heart Healthy, Diabetic Activity Discharge Activity: No restrictions Call your provider Call your provider for: Fever or Chills, Shortness of breath, Bleeding, Chest pain, Vomitting, Excessive diarrhea, Weakness (unilateral), Other Patient Instructions Patient Instructions Please see PCP in one week Follow-up plan F/U with [facility] clinic in one week F/U BMP X 1 prior to f/u with PCP F/U with podiatry as outpatient in 1-2 weeks Patria Newby DO Feb 03, 2017 10:07
--- NOTE | 2017-02-03 10:12 | PCM.DC.MED ---
Discharge Summary Date of Service Feb 03, 2017 Dates of Hospitalization Date of Hospital Admission Jan 31, 2017 at 23:42 Date of Discharge: Feb 03, 2017 Providers: Admitting Physician: Brooklyn De La Cruz DO Primary Care Physician: Gilberto Attending Physician: Patria Ramesh DO Diagnosis at Time of Discharge Diagnosis at Time of Discharge Cellulitis of b/l lower extremities, Venous stasis ulcers, Hypertension, DM II, Morbid Obesity Consultations Wound care, PT/OT, Diabetic Education Procedures XRay, CTs & MRIs [facility] [place] [address] Patient Name: HELIO CHUNG MR#: [id number] Location: [facility] Ordering Phys: Brooklyn De La Crzu DO Date of Service: 02/01/17 0423 PROCEDURE: US VENOUS LEG DUPLEX BILATERAL INDICATIONS: Cellulitis with possible DVT. TECHNIQUE: Real-time imaging, as well as color and pulse Doppler interrogation, were performed of the deep veins of both legs from the inguinal ligament to the popliteal fossa. COMPARISON: None. FINDINGS: The deep veins are normally compressible, and free of intraluminal thrombus. Color and pulse Doppler demonstrate normal phasic intravascular flow. There is normal augmentation response to distal compression maneuver. IMPRESSION: 1. No evidence of deep venous thrombosis in the right or left lower extremity. Dictated by: Gabe Khanna M.D. on 02/01/2017 at 20:54 Approved by: Gabe Khanna M.D. on 02/01/2017 at 20:54 Hospital Course Patient is a 41 y/o Male new to this hospital with no known past medical history. Patient presented to ED with bilateral lower extremities erythema and swelling that has been chronic to him for the past two years, but has worsened over the last 2-3 weeks.Patient admitted to medical service for cellulitis of lower extremities and hyperglycemia. 1. Cellulitis, POA - chronicity unknown, likely chronic venous stasis, present on admission likely cellulitis, also consider DVT - Zosyn 3.375mg IV dose given in ED - Vancomycin is discontinued on 02/02 - Ceftriaxone 2g IV Q24 was given during his hospitalization - WBC within normal range - Blood Cultures NGTD - AM US of LLE: Negative for DVT - Wound care consult :"Foot care has obviously been neglected as has been compression therapy. Patient presents with superficial areas of skin abrasion at his left posterior calf. I am reluctant to compress this patient until podiatry has assessed patients feet. Will recheck on this patient tomorrow , for now leg elevation and antibiotic regiment should suffice." -- Pt discharged on levaquin+clindamycin PO 8 day course+probiotics 2. Diabetes mellitus with Hyperglycemia - chronicity unknown, present on admission - Blood glucose 245 on admission with 500 glucose on UA - HgbA1c ordered 8.0 - started patient on sliding scale insulin - diabetic diet - Diabetes education was ordered --Started patient on metformin 500 mg by mouth twice a day, may titrate it up in 1 week --Patient will likely need a second agent to control his Diabetes, PCP is requested to f/u 3 .Hypertension - chronicity unknown, present on admission - started on lisinopril 20mg QD, will monitor - Added chlorthalidone 12.5 mg as blood pressures are not controlled - F/U BMP is ordered 4. Tinea pedis active -- Terbinafine cream 5. Lactic Acid 4.1 on admission: Resolved, likely due to infection and dehydration 6. Tachycardia, resolved. likely secondary to anxiety PRN antiemetic, PPI, and pain Heparin 5,000 units for anticoagulation Diabetic diet Patient is FULL CODE Dispo: pending clinical improvement. Patient is homeless. PT eval. "Pt is a 41 y.o. male who is diagnosed with B LE cellulitis and hyperglycemia. PMH: umbilical hernia. PLOF: Pt is homeless and I at baseline. CLOF: Pt mobilized in session as SBA/I. He was able to ambulate 400 feet with no AD; his gait pattern is unsteady, but no LOB is noted. His tinetti balance score is 15/16 and his tinetti gait score is 10/12, with a total score of 25/28. Pt is at a low-risk for falls. Based on this evaluation, PT recommends d/c to home when medically ready, and no further acute PT needs indicated. Pt is released to RN for ambulating 2-3x/day. " Exam Vital Signs (Last) Date Time Temp Pulse Resp B/P Pulse Ox O2 Delivery O2 Flow Rate FiO2 02/03/17 05:34 36.7 86 19 154/90 96 Room Air 02/01/17 04:58 1.00 Exam Gen.: No acute distress, morbidly obese HEENT: Normocephalic, atraumatic Heart: Regular rate and rhythm no S3-S4 murmurs Lungs: Clear to auscultation no crackles or wheezes Abdomen: Very large obese abdomen normal bowel sounds, protruding umbilical hernia Extremities: Swollen large erythematous lower extremities, erythema/swelling seems to be improving as it is well under the demarcated line Neurological: 1+ patellar reflex Skin: Weeping, draining ulcers on the right lower extremity, diffuse nail fungus , onychomycosis Neuro: No focal deficits Test 01/31/17 18:30 01/31/17 20:24 02/01/17 08:15 02/01/17 22:55 Hemoglobin A1c 8.0% (4.8-5.6) Magnesium Level 1.5mg/dL (1.6-2.6) Total Bilirubin 0.2mg/dL (0.0-1.2) Aspartate Amino Transf (AST/SGOT) 55U/L (0-50) Alanine Aminotransferase (ALT/SGPT) 71U/L (0-44) Alkaline Phosphatase 86U/L (25-150) Pro-B-Type Natriuretic Peptide 50.32pg/mL (0-86) Total Protein 7.2g/dL (6.4-8.4) Albumin 3.5g/dL (3.4-5.0) Urine Color Yellow (YELLOW) Urine Appearance Clear (CLEAR,HAZY) Urine pH 5.0 (5.0-8.0) Urine Specific Wilson 1.034 (1.003-1.035) Urine Protein 30mg/dL (NEG,TRACE) Urine Glucose (UA) 500mg/dL (NEGATIVE) Urine Ketones Negativemg/dL (NEGATIVE) Urine Occult Blood Negative (NEGATIVE) Urine Nitrite Negative (NEGATIVE) Urine Bilirubin Negative (NEGATIVE) Urine Urobilinogen Normalmg/dL (NORMAL) Urine Leukocyte Esterase Negative (NEGATIVE) Urine RBC 0-2/hpf (0-2) Urine WBC 0-5/hpf (0-5) Urine Epithelial Cells Few/hpf (NONE-MOD) Urine Crystals None seen (NONE SEEN) Urine Bacteria None/hpf (NONE-FEW) Urine Hyaline Casts None/lpf (NONE) Urine Granular Casts None seen (NONE SEEN) Urine Waxy Casts None seen (NONE SEEN) Urine Red Blood Cell Casts None seen (NONE SEEN) Urine White Blood Cell Casts None seen (NONE SEEN) Urine Mucus None seen (None Seen) Urine Trichomonas None seen (NONE SEEN) Urine Yeast None (NONE SEEN) Urinalysis Comment None Urine Culture Reflexed Not indicated Neutrophils (%) (Auto) 68.7% (40-74) Lymphocytes (%) (Auto) 20.1% (14-46) Monocytes (%) (Auto) 9.3% (4-12) Eosinophils (%) (Auto) 1.2% (0-5) Basophils (%) (Auto) 0.2% (0-3) D-Dimer 0.66mg/L FEU (<0.50) Sodium Level 137mEq/L (134-144) Potassium Level 4.2mEq/L (3.5-5.2) Chloride Level 96mEq/L (97-108) Carbon Dioxide Level 25mmol/L (18-29) Blood Urea Nitrogen 10mg/dL (6-24) Creatinine 0.80mg/dL (0.76-1.27) Estimat Glomerular Filtration Rate 113mL/min (>59) Glucose Level 187mg/dL (60-99) Calcium Level 9.1mg/dL (8.5-10.1) Streptozyme 55.0IU/mL (0.0-200.0) Vancomycin Level Trough 9.6mcg/mL Test 02/02/17 02:25 02/02/17 05:30 02/02/17 05:40 Lactic Acid Level 1.3mmol/L (0.4-2.0) White Blood Count 7.0th/mm3 (3.8-10.1) Red Blood Count 4.86mil/mm3 (4.40-5.80) Hemoglobin 13.2g/dL (13.8-17.2) Hematocrit 39.9% (41.0-50.0) Mean Corpuscular Volume 82.1fL (81-100) Mean Corpuscular Hemoglobin 27.2pg (27.0-35.0) Mean Corpuscular Hemoglobin Concent 33.1% (32.0-37.0) Red Cell Distribution Width 14.1% (12.3-15.4) Platelet Count don/L (150-400) Erythrocyte Sedimentation Rate 42mm/hr (0-15) C-Reactive Protein 5.5mg/dL (0.0-0.5) Discharge Medications Discharge Medications ([Terbinafine Hcl]) 1 APPLIC/0.5 GM CREAM 1 APPLIC TOPICAL BID Prescribed by: PATRIA RAMESH DO Chlorthalidone (Chlorthalidone) 25 Mg Tablet 12.5 MG PO DAILY Prescribed by: PATRIA RAMESH DO Clindamycin (Clindamycin) 150 Mg Capsule 450 MG PO TID Prescribed by: PATRIA RAMESH DO Lactobacillus Acidophilus (Acidophilus) 1 Each Capsule 1 EACH PO BID Prescribed by: PATRIA RAMESH DO Levofloxacin (Levaquin) 750 Mg Tablet 750 MG PO DAILY Prescribed by: PATRIA RAMESH DO Lisinopril (Lisinopril) 20 Mg Tablet 20 MG PO DAILY Prescribed by: PATRIA RAMESH DO Metformin (Glucophage) 500 Mg Tablet 500 MG PO BIDWM Prescribed by: PATRIA RAMESH DO Nystatin (Nystatin) 1 Each Powder.ea. 1 APPLIC TOPICAL BID Prescribed by: PATRIA RAMESH DO Additional med instructions Please note you have new medications for DM II, HTN, Cellulitis We recommend that you wear compression stockings Followup Plan Follow-up plan F/U with [facility] residency clinic in one week F/U BMP X 1 prior to f/u with PCP F/U with podiatry as outpatient in 1-2 weeks Discharge Diet: Heart Healthy, Diabetic Discharge Activity: No restrictions Patient Instructions Please see PCP in one week Time spent > 30 min Patria Ramesh DO Feb 03, 2017 10:12
[2017-02-03] MEDS: TerBINafine 1% 15 Gm Cream TOPICAL SCH (10:38)
[2017-02-03] MEDS: Nystatin 100,000 Unit/Gm 15 Gm Powder TOPICAL SCH (10:38)
--- NOTE | 2017-02-03 10:52 | NUR ---
Social Work-multidisciplinary rounds: Per MD, pt is likely medically stable for discharge today. PT has cleared pt for home no needs. MD would like SW to make PCP appointment for pt at residency clinic. SW to await MD order. NATALIE Jack
--- NOTE | 2017-02-03 10:54 | NUR ---
Social Work-discharge: Data:EMR Reviewed. Pt is on day 3 of hospitalization for cellulitis per H&P. Pt is medically stable for discharge. PT has cleared pt for home no needs. order received for PCP appointment at residency clinic. SW arranged PCP appointment for 02/20 at 4:15. SW provided this information to pt at bedside. 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 No other needs identified. All updated and agreeable to plan. Assessment:Pt who is independent at baseline. Plan:Pt to discharge back to his truck today via POV. PCP appointment arranged for pt. No other needs identified. All updated and agreeable to plan. NATALIE Jack
[2017-02-03 12:28] VITALS: BP 143/87; PULSE 96; RESP 20; O2SAT 99
--- NOTE | 2017-02-03 15:44 | NUR ---
Discharge Patient departed unit via wheelchair, accompanied by friends and staff. Patient alert and oriented prior to discharge. Patient discharged to his car as he is homeless. Follow up appointments scheduled at residency clinic. Scant discharge from Lt calf cellulites-open to air. Patient denies pain, shortness of breath, nausea, and chest discomfort. Patient encouraged to wear compressions stockings or compression wrap to bilateral lower legs. Patient teaching on hypertension and diabetes given. Discharge instructions/medications reviewed with patient prior to discharge. All questions addressed. Patient belongings, discharge instructions and prescriptions in hand.
== END 2017-02-03 15:20 | disposition home or self-care (01) | DRG 603 ==
LOC: SED 17:52 → MPC 23:42
PROVIDERS: ADMIT Internal Medicine; ATTEND Internal Medicine
DX: L03.116 Cellulitis of left lower limb (principal); E87.2 Acidosis; Z68.43 Body mass index [BMI] 50.0-59.9, adult; L03.115 Cellulitis of right lower limb; I10 Essential (primary) hypertension; R00.0 Tachycardia, unspecified; F41.9 Anxiety disorder, unspecified; E66.01 Morbid (severe) obesity due to excess calories; E11.65 Type 2 diabetes mellitus with hyperglycemia; B35.3 Tinea pedis; I87.8 Other specified disorders of veins; Z59.0 Homelessness; E86.0 Dehydration